=== PATIENT | female | born 1970 | race African-American/Black ===

== ENCOUNTER 2016-08-10 13:00 | Emergency (ER) | payer SELFPAY ==
[~2016-08-10] VITALS: Ht 172.7 cm; Wt 75.0 kg
[~2016-08-10 13:00] MED LIST: NYSTATIN-TRIAMC15 GM TP
[2016-08-10 13:05] VITALS: BP 147/66
== END 2016-08-10 13:16 | disposition left against medical advice (07) ==
LOC: EME 13:00
DX: J34.89 Other specified disorders of nose and nasal sinuses (principal); R22.0 Localized swelling, mass and lump, head; Z53.21 Procedure and treatment not carried out due to patient leaving prior to being seen by health care provider

== ENCOUNTER 2016-08-25 18:23 | Emergency (ER) | payer OTHER ==
[~2016-08-25] VITALS: Ht 172.7 cm; Wt 73.3 kg
[2016-08-25] MEDS ORDERED: ATARAX,VISTARIL25 MG PO (19:00)
[2016-08-25] MEDS ORDERED: ECONAZOLE NITRA15 GM TP (19:00)
[2016-08-25] MEDS ORDERED: PREDNISONE20 MG PO (19:00)
[2016-08-25 19:41] VITALS: BP 126/79
== END 2016-08-25 19:42 | disposition home or self-care (01) ==
LOC: EME 18:23
DX: B35.4 Tinea corporis (principal)
CPT/HCPCS: 99281; 99283